=== PATIENT | female | born 1955 | race Caucasian/White ===

== ENCOUNTER 2016-06-28 08:00 | Outpatient (CLI) | payer MEDICAID | END 2016-06-28 08:01 | disposition home or self-care (01) | DX: E11.8 Type 2 diabetes mellitus with unspecified complications (principal); I10 Essential (primary) hypertension; E78.5 Hyperlipidemia, unspecified ==

== ENCOUNTER 2016-12-10 16:30 | Outpatient (CLI) | payer MEDICAID | END 2016-12-10 16:31 | disposition home or self-care (01) | LOC: LAB.R 16:30 | PROVIDERS: ATTEND Podiatrist | DX: E11.622 Type 2 diabetes mellitus with other skin ulcer (principal) | CPT/HCPCS: 87070; 87077; 87205 ==

== ENCOUNTER 2017-01-20 10:00 | Outpatient (CLI) | payer MEDICAID | END 2017-01-20 10:01 | disposition home or self-care (01) | LOC: LAB.R 10:00 | PROVIDERS: ATTEND Podiatrist | DX: E11.622 Type 2 diabetes mellitus with other skin ulcer (principal) | CPT/HCPCS: 87070; 87077; 87205 ==

== ENCOUNTER 2017-02-15 08:00 | Outpatient (CLI) | payer MEDICAID | END 2017-02-15 08:01 | disposition home or self-care (01) | LOC: LAB.R 08:00 | PROVIDERS: ATTEND Podiatrist | DX: E11.622 Type 2 diabetes mellitus with other skin ulcer (principal) | CPT/HCPCS: 87070; 87205 ==

== ENCOUNTER 2017-03-28 08:00 | Outpatient (CLI) | payer MEDICAID | END 2017-03-28 08:01 | disposition home or self-care (01) | LOC: LAB.R 08:00 | PROVIDERS: ATTEND Podiatrist | DX: E11.622 Type 2 diabetes mellitus with other skin ulcer (principal) | CPT/HCPCS: 87070; 87205 ==

== ENCOUNTER 2017-07-22 07:10 | Outpatient (CLI) | payer MEDICAID ==
[2017-07-22 11:24] LABS: ALBUMIN 4.1 g/dL (3.2-5.5); ALBUMIN/GLOBULIN RATIO 1.4 (1.0-2.2); ALKALINE PHOSPHATASE 61 IU/L (42-121); ALT ALANINE AMINOTRANSFERASE 28 IU/L (10-60); AST ASPARTATE AMINOTRANSFERASE 28 IU/L (10-42); BILIRUBIN,TOTAL 0.4 mg/dL (0.2-1.0); BUN - BLOOD UREA NITROGEN 10 mg/dL (6-20); CALCIUM 9.5 mg/dL (8.5-10.3); CARBON DIOXIDE - CO2 28 mmol/L (21-32); CHLORIDE 102 mmol/L (101-111); CHOL/HDL RATIO 5.3 (<4.4); CHOLESTEROL 159 mg/dL; CREATININE 0.6 mg/dL (0.4-1.0); GFR - MDRD 102 (>89); GLUCOSE 97 mg/dL (70-100); HDL CHOLESTEROL 30 mg/dL; SODIUM 139 mmol/L (135-145)
[2017-07-22 11:42] LABS: LDL CHOLESTEROL,DIRECT 69 mg/dL; LDLD/HDL RATIO 2.3 (<4.4)
[2017-07-22 12:06] LABS: HB2 TOTAL 16.5 g/dL; HEMOGLOBIN A1C 1.16 g/dL; HEMOGLOBIN A1C % 8.6 % (4.6-6.2)
== END 2017-07-22 07:11 | disposition home or self-care (01) ==
LOC: LAB.F 07:10
PROVIDERS: ATTEND Nurse Practitioner Family
DX: I10 Essential (primary) hypertension (principal); E11.9 Type 2 diabetes mellitus without complications; E78.5 Hyperlipidemia, unspecified
CPT/HCPCS: 36415; 80053; 80061; 82043; 83036; 83721

== ENCOUNTER 2017-11-10 07:16 | Outpatient (CLI) | payer MEDICAID ==
[2017-11-10 12:03] LABS: CHOL/HDL RATIO 4.1 (<4.4); CHOLESTEROL 114 mg/dL; HDL CHOLESTEROL 28 mg/dL; LDL CHOLESTEROL,CALCULATED 38 mg/dL; LDL/HDL RATIO 1.4 (<4.4); VLDL CHOLESTEROL 48 mg/dL
== END 2017-11-10 07:17 | disposition home or self-care (01) ==
LOC: LAB.F 07:16
PROVIDERS: ATTEND Nurse Practitioner Family
DX: E78.5 Hyperlipidemia, unspecified (principal)
CPT/HCPCS: 36415; 80061; 83721

== ENCOUNTER 2017-12-08 09:22 | Outpatient (CLI) | payer MEDICAID ==
[2017-12-08 18:03] LABS: HB2 TOTAL 17.7 g/dL; HEMOGLOBIN A1C 1.1 g/dL; HEMOGLOBIN A1C % 7.8 % (4.6-6.2)
== END 2017-12-08 09:23 | disposition home or self-care (01) ==
LOC: LAB.F 09:22
PROVIDERS: ATTEND Nurse Practitioner Family
DX: E11.65 Type 2 diabetes mellitus with hyperglycemia (principal)
CPT/HCPCS: 36415; 83036

== ENCOUNTER 2018-03-29 09:11 | Outpatient (CLI) | payer MEDICAID ==
[2018-03-29 18:31] LABS: HB2 TOTAL 16.8 g/dL; HEMOGLOBIN A1C 0.9 g/dL; HEMOGLOBIN A1C % 7.1 % (4.6-6.2)
[2018-03-29 18:39] LABS: BILIRUBIN,DIRECT 0.1 mg/dL (0.1-0.5); BILIRUBIN,TOTAL 0.9 mg/dL (0.2-1.0); TOTAL PROTEIN 6.7 g/dL (6.7-8.2)
== END 2018-03-29 09:12 | disposition home or self-care (01) ==
LOC: LAB.F 09:11
PROVIDERS: ATTEND Nurse Practitioner Family
DX: E11.65 Type 2 diabetes mellitus with hyperglycemia (principal); E78.1 Pure hyperglyceridemia; E78.5 Hyperlipidemia, unspecified
CPT/HCPCS: 36415; 80076; 83036; 84478

== ENCOUNTER 2018-05-15 08:19 | Outpatient (CLI) | payer MEDICAID ==
--- NOTE | 2018-05-15 12:04 | XRAY Report ---
Reason: LEG NUMBNESS Procedure Date: 05/15/2018 Accession Number: [id number] / [id number] Procedure: XR - Lumbar Spine 2 View CPT Code: FULL RESULT: EXAM: LUMBOSACRAL SPINE RADIOGRAPHY EXAM DATE: 05/15/2018 08:51 AM. CLINICAL HISTORY: LEG NUMBNESS. COMPARISONS: None. TECHNIQUE: 3 views. FINDINGS: Alignment: No spondylolisthesis or scoliosis. Bones: Five yov-ndw-bpnhlsg lumbar vertebral bodies are present. There is minimal wedging of the L3 vertebral body without a comparison. Disks: There is moderate narrowing of the L4-L5 disk space. There is mild narrowing of the L5-S1 disk space. There are small to moderate anterior osteophytes. Facets: No degenerative changes. Sacroiliac Joints: Unremarkable. Soft Tissues: The visualized bowel gas pattern is normal. IMPRESSION: 1. Moderate lumbar spondylosis 2. Mild anterior wedging of L3 is seen without a comparison. Correlate clinically. RADIA
== END 2018-05-15 08:20 | disposition home or self-care (01) ==
LOC: DI 08:19
PROVIDERS: ATTEND Nurse Practitioner Family
DX: M47.9 Spondylosis, unspecified (principal); M48.56XA Collapsed vertebra, not elsewhere classified, lumbar region, initial encounter for fracture
CPT/HCPCS: 72100

== ENCOUNTER 2018-12-20 07:06 | Outpatient (CLI) | payer MEDICAID ==
[2018-12-20 11:01] LABS: HB2 TOTAL 16.6 g/dL; HEMOGLOBIN A1C 1.12 g/dL; HEMOGLOBIN A1C % 8.3 % (4.6-6.2)
== END 2018-12-20 07:07 | disposition home or self-care (01) ==
LOC: LAB.S 07:06
PROVIDERS: ATTEND Registered Nurse
DX: E11.9 Type 2 diabetes mellitus without complications (principal)
CPT/HCPCS: 36415; 83036

== ENCOUNTER 2019-01-19 11:41 | Outpatient (CLI) | payer MEDICAID | END 2019-01-19 11:42 | disposition home or self-care (01) | LOC: LAB.S 11:41 | PROVIDERS: ATTEND Registered Nurse | DX: Z53.9 Procedure and treatment not carried out, unspecified reason (principal) ==

== ENCOUNTER 2019-01-22 08:38 | Outpatient (CLI) | payer MEDICAID ==
[2019-01-22 17:10] LABS: BASOPHILS % (AUTO) 0.7 %; EOSINOPHILS # (AUTO) 0.2 10^3/uL (0.0-0.7); EOSINOPHILS % (AUTO) 3.5 %; LYMPHOCYTES # (AUTO) 1.4 10^3/uL (1.5-3.5); LYMPHOCYTES % (AUTO) 24.5 %; MEAN CORPUSCULAR HEMOGLOBIN 33.2 pg (27.0-31.0); MEAN CORPUSCULAR HGB CONC 33.1 g/dL (32.0-36.0); MEAN CORPUSCULAR VOLUME 100.2 fL (81.0-99.0); MEAN PLATELET VOLUME 9.7 fL (7.9-10.8); MONOCYTES # (AUTO) 0.5 10^3/uL (0.0-1.0); MONOCYTES % (AUTO) 9.4 %; NEUTROPHILS # (AUTO) 3.5 10^3/uL (1.5-6.6); NEUTROPHILS % (AUTO) 61.4 %; PLT - PLATELET COUNT 256 10^3/uL (130-450); RED BLOOD COUNT 4.82 10^6/uL (4.20-5.40); RED CELL DISTRIBUTION WIDTH 13.4 % (12.0-15.0); WHITE BLOOD COUNT 5.8 x10^3/uL (4.8-10.8)
[2019-01-22 17:23] LABS: HB2 TOTAL 16.5 g/dL; HEMOGLOBIN A1C 0.94 g/dL; HEMOGLOBIN A1C % 7.4 % (4.6-6.2)
[2019-01-22 17:37] LABS: CREATININE,URINE 163.4 mg/dL; MICROALBUM/CREATININE RATIO,UR 130.4 ug/mg (<30.0); MICROALBUMIN,URINE 21.3 mg/dL (0-300.0)
[2019-01-22 17:39] LABS: ALBUMIN 3.7 g/dL (3.2-5.5); ALBUMIN/GLOBULIN RATIO 1.3 (1.0-2.2); ALKALINE PHOSPHATASE 68 IU/L (42-121); ALT ALANINE AMINOTRANSFERASE 19 IU/L (10-60); AST ASPARTATE AMINOTRANSFERASE 18 IU/L (10-42); BILIRUBIN,TOTAL 0.6 mg/dL (0.2-1.0); BUN - BLOOD UREA NITROGEN 9 mg/dL (6-20); CALCIUM 9.4 mg/dL (8.5-10.3); CARBON DIOXIDE - CO2 33 mmol/L (21-32); CHLORIDE 104 mmol/L (101-111); CHOL/HDL RATIO 5.6 (<4.4); CHOLESTEROL 174 mg/dL; CREATININE 0.6 mg/dL (0.4-1.0); GFR - MDRD 101 (>89); GLUCOSE 162 mg/dL (70-100); HDL CHOLESTEROL 31 mg/dL; LDL CHOLESTEROL,CALCULATED 91 mg/dL; LDL/HDL RATIO 2.9 (<4.4); SODIUM 141 mmol/L (135-145); TOTAL PROTEIN 6.6 g/dL (6.7-8.2); VLDL CHOLESTEROL 52 mg/dL
== END 2019-01-22 08:39 | disposition home or self-care (01) ==
LOC: LAB.S 08:38
PROVIDERS: ATTEND Registered Nurse
DX: E11.65 Type 2 diabetes mellitus with hyperglycemia (principal); I10 Essential (primary) hypertension; E78.5 Hyperlipidemia, unspecified; E78.1 Pure hyperglyceridemia; E66.01 Morbid (severe) obesity due to excess calories
CPT/HCPCS: 36415; 80050; 80061; 82043; 82570; 83036; 83721

== ENCOUNTER 2020-04-14 08:26 | Outpatient (CLI) | payer OTHER ==
[2020-04-14 17:00] LABS: BASOPHILS # (AUTO) 0.1 10^3/uL (0.0-0.1); BASOPHILS % (AUTO) 1.2 %; EOSINOPHILS # (AUTO) 0.2 10^3/uL (0.0-0.7); EOSINOPHILS % (AUTO) 3.7 %; HGB - HEMOGLOBIN 16.2 g/dL (12.0-16.0); LYMPHOCYTES # (AUTO) 1.4 10^3/uL (1.5-3.5); LYMPHOCYTES % (AUTO) 27.5 %; MEAN CORPUSCULAR HEMOGLOBIN 33.7 pg (27.0-31.0); MEAN CORPUSCULAR HGB CONC 33.1 g/dL (32.0-36.0); MEAN CORPUSCULAR VOLUME 101.7 fL (81.0-99.0); MEAN PLATELET VOLUME 9.7 fL (7.9-10.8); MONOCYTES # (AUTO) 0.4 10^3/uL (0.0-1.0); MONOCYTES % (AUTO) 8.4 %; NEUTROPHILS # (AUTO) 2.9 10^3/uL (1.5-6.6); NEUTROPHILS % (AUTO) 58.8 %; PLT - PLATELET COUNT 298 10^3/uL (130-450); RED BLOOD COUNT 4.81 10^6/uL (4.20-5.40); WHITE BLOOD COUNT 4.9 x10^3/uL (4.8-10.8)
[2020-04-14 17:02] LABS: ALBUMIN 3.8 g/dL (3.2-5.5); ALBUMIN/GLOBULIN RATIO 1.4 (1.0-2.2); ALKALINE PHOSPHATASE 60 IU/L (42-121); ALT ALANINE AMINOTRANSFERASE 18 IU/L (10-60); AST ASPARTATE AMINOTRANSFERASE 16 IU/L (10-42); BILIRUBIN,TOTAL 1.1 mg/dL (0.2-1.0); BUN - BLOOD UREA NITROGEN 14 mg/dL (6-20); CALCIUM 9.5 mg/dL (8.5-10.3); CARBON DIOXIDE - CO2 30 mmol/L (21-32); CHLORIDE 100 mmol/L (101-111); CHOL/HDL RATIO 6.4 (<4.4); CHOLESTEROL 192 mg/dL; CREATININE 0.9 mg/dL (0.4-1.0); GLUCOSE 203 mg/dL (70-100); HDL CHOLESTEROL 30 mg/dL; LDL CHOLESTEROL,CALCULATED 101 mg/dL; LDL/HDL RATIO 3.4 (<4.4); SODIUM 139 mmol/L (135-145); TOTAL PROTEIN 6.6 g/dL (6.7-8.2); VLDL CHOLESTEROL 61 mg/dL
== END 2020-04-14 08:27 | disposition home or self-care (01) ==
LOC: LAB.S 08:26
PROVIDERS: ATTEND Family Medicine
DX: E11.621 Type 2 diabetes mellitus with foot ulcer (principal); E11.65 Type 2 diabetes mellitus with hyperglycemia; E03.9 Hypothyroidism, unspecified; E78.5 Hyperlipidemia, unspecified; I10 Essential (primary) hypertension; K21.9 Gastro-esophageal reflux disease without esophagitis
CPT/HCPCS: 36415; 80053; 80061; 83036; 83721; 84443; 85025

== ENCOUNTER 2020-08-05 15:59 | Outpatient (CLI) | payer OTHER ==
[2020-08-05 16:16] LABS: BASOPHILS # (AUTO) 0.1 10^3/uL (0.0-0.1); BASOPHILS % (AUTO) 0.8 %; EOSINOPHILS # (AUTO) 0.1 10^3/uL (0.0-0.7); EOSINOPHILS % (AUTO) 1.4 %; HCT - HEMATOCRIT 45.6 % (37.0-47.0); HGB - HEMOGLOBIN 16.2 g/dL (12.0-16.0); LYMPHOCYTES # (AUTO) 1.6 10^3/uL (1.5-3.5); LYMPHOCYTES % (AUTO) 18.4 %; MEAN CORPUSCULAR HEMOGLOBIN 34.9 pg (27.0-31.0); MEAN CORPUSCULAR HGB CONC 35.5 g/dL (32.0-36.0); MEAN CORPUSCULAR VOLUME 98.3 fL (81.0-99.0); MEAN PLATELET VOLUME 8.7 fL (7.9-10.8); MONOCYTES # (AUTO) 0.7 10^3/uL (0.0-1.0); MONOCYTES % (AUTO) 7.7 %; NEUTROPHILS # (AUTO) 6.3 10^3/uL (1.5-6.6); NEUTROPHILS % (AUTO) 71.2 %; PLT - PLATELET COUNT 304 10^3/uL (130-450); RED BLOOD COUNT 4.64 10^6/uL (4.20-5.40); RED CELL DISTRIBUTION WIDTH 12.6 % (12.0-15.0); WHITE BLOOD COUNT 8.8 x10^3/uL (4.8-10.8)
[2020-08-05 16:26] LABS: ALBUMIN 4.1 g/dL (3.2-5.5); ALBUMIN/GLOBULIN RATIO 1.4 (1.0-2.2); BILIRUBIN,TOTAL 0.9 mg/dL (0.2-1.0); CALCIUM 9.9 mg/dL (8.5-10.3); CREATININE 0.8 mg/dL (0.4-1.0); POTASSIUM 3.3 mmol/L (3.5-5.0)
[2020-08-05 19:08] LABS: ESTIMATED AVERAGE GLUCOSE 180 mg/dL (70-100); HEMOGLOBIN A1c% 7.9 % (4.27-6.07)
== END 2020-08-05 16:00 | disposition home or self-care (01) ==
LOC: LAB 15:59
PROVIDERS: ATTEND Internal Medicine Gastroenterology
DX: E11.621 Type 2 diabetes mellitus with foot ulcer (principal)
CPT/HCPCS: 36415; 80053; 83036; 85025

== ENCOUNTER 2020-09-30 15:32 | Outpatient (CLI) | payer OTHER ==
--- NOTE | 2020-09-30 16:45 | XRAY Report ---
PROCEDURE: Foot 3 View RT INDICATIONS: Type 2 diabetes mellitus with foot ulcer TECHNIQUE: 3 views of the foot were acquired. COMPARISON: None FINDINGS: Bones: No fractures or dislocations. Diffuse IP degenerative changes are present most severe in the first digit. Periarticular osteophytes are present. Ill-defined area of lucency is noted at the base of the distal first phalanx and to a lesser degree the distal aspect of the proximal first phalanx. No priors are available for comparison. Partially visualized distal fibular as well as tibial fusion is noted. Soft tissues: No tibiotalar joint effusion. Achilles tendon appears normal. Soft tissue edema is p resent surrounding the distal first digit. IMPRESSION: Lucencies identified within the proximal and distal phalanx of the first digit. Given adjacent soft t issue edema particularly adjacent to the distal phalanx, developing focus of infection such as osteom yelitis cannot be excluded. Reviewed by: Aleta Verde MD on 09/30/2020 4:44 PM PDT Approved by: Aleta Verde MD on 09/30/2020 4:44 PM PDT Station ID: [id number]
== END 2020-09-30 15:33 | disposition home or self-care (01) ==
LOC: DI 15:32
PROVIDERS: ATTEND Nurse Practitioner
DX: E11.621 Type 2 diabetes mellitus with foot ulcer (principal)

== ENCOUNTER 2020-10-23 12:52 | Outpatient (CLI) | payer OTHER ==
[2020-10-23 13:22] LABS: CREATININE 0.7 mg/dL (0.4-1.0)
[2020-10-23] MEDS ORDERED: GADOBUTROL 15 MMOL/15 ML VIAL ONE (13:55)
[2020-10-23] MEDS ORDERED: GADOBUTROL 15 MMOL/15 ML VIAL IVP ONE (16:17)
--- NOTE | 2020-10-23 16:45 | MRI Report ---
PROCEDURE: Foot RT W/WO INDICATIONS: FOOT ULCER CONTRAST: IV CONTRAST: Gadavist ml: 13 TECHNIQUE: Noncontrast sagittal T1 spin echo and T2 fast spin echo with fat saturation, long-axis T1 spin echo a nd T2 fast spin echo with fat saturation; short-axis T1 spin echo, proton density fast spin echo, and T2 fast spin echo with fat saturation through the forefoot. Post-contrast short axis, long axis, an d sagittal T1 spin echo with fat saturation through the forefoot. COMPARISON: Foot x-ray 09/30/2020. FINDINGS: Image quality: Evaluation limited by motion artifact and inhomogeneous fat saturation. Bones and joints: There is abnormal bone marrow edema and enhancement within the first distal phalanx with an associated plantar cortical erosion. Findings are consistent with osteomyelitis. No definite cortical erosion, abnormal edema or enhancement within the first proximal phalanx. There is mild deg eneration at the first metatarsophalangeal joint. There is also mild to moderate degeneration of the interphalangeal joints. The sesamoid bones demonstrate normal position and signal. No joint effusions . Soft tissues: There is a soft tissue ulcer along the medial plantar aspect of the great toe at the le viktoriya of the interphalangeal joint. There is associated soft tissue edema and enhancement within the gr eat toe extending to the first proximal and distal phalanges. No discrete abscess collection identifi ed. The visualized plantar foot muscles demonstrate moderate fatty atrophy without associated abnormal en hancement. Visualized flexor and extensor tendons appear intact, without tenosynovitis. The distal i nsertions of the peroneus brevis and longus tendons appear intact. The principal Lisfranc ligament a ppears intact. A small amount of intermetatarsal bursal fluid is present within the first and third m etatarsal interspaces. No soft tissue ganglion cysts IMPRESSION: 1. Abnormal marrow edema and enhancement with a plantar cortical erosion in the first distal phalanx consistent with osteomyelitis. 2. Soft tissue ulcer within the plantar medial aspect of the great toe with subjacent soft tissue zoila ma and enhancement consistent with cellulitis. No discrete abscess identified. 3. Mild enhancement demonstrated along the first proximal phalanx without discrete cortical erosions or abnormal marrow enhancement to suggest definite osteomyelitis, but developing periosteal infection cannot be excluded. Reviewed by: Kevin Sneed MD on 10/23/2020 4:43 PM PDT Approved by: Kevin Sneed MD on 10/23/2020 4:43 PM PDT Station ID: [id number]
== END 2020-10-23 12:53 | disposition home or self-care (01) ==
LOC: LAB 12:52 → DI 12:53
PROVIDERS: ATTEND Nurse Practitioner
DX: R93.6 Abnormal findings on diagnostic imaging of limbs (principal); R93.89 Abnormal findings on diagnostic imaging of other specified body structures; L97.519 Non-pressure chronic ulcer of other part of right foot with unspecified severity; E11.621 Type 2 diabetes mellitus with foot ulcer
CPT/HCPCS: 36415; 73720; 82565; A9585

== ENCOUNTER 2020-11-19 06:06 | Day surgery (SDC) | payer OTHER ==
[2020-11-19] MEDS ORDERED: LACTATED RINGERS 1,000 ML IV ONE ×2 (06:44→08:09)
[2020-11-19] MEDS ORDERED: MIDAZOLAM 2 MG/2 ML VIAL ONE (07:07)
[2020-11-19] MEDS ORDERED: PROPOFOL 200 MG/20 ML VIAL IVP ONE (07:09)
[2020-11-19] MEDS ORDERED: LIDOCAINE-MPF 2% 5 ML VIAL ONE (07:09)
[2020-11-19] MEDS ORDERED: SODIUM CHLORIDE 0.9% 10 ML VIAL IVP ONE (07:10)
[2020-11-19] MEDS ORDERED: KETAMINE 500 MG/10 ML VIAL ONE (07:10)
--- NOTE | 2020-11-19 07:11 | ANESTHESIA ---
Pre-Anesthesia VS, & Labs - Diagnosis R heel contracture - Procedure R heel cord lengthening Vital Signs: Temp Pulse Resp BP Pulse Ox 36.3 C L 58 L 19 211/75 H 97 11/19/20 06:28 11/19/20 06:28 11/19/20 06:28 11/19/20 06:28 11/19/20 06:28 Height: 5 ft 9 in Weight (kg): 131.1 kg Body Mass Index: 42.7 BMI Classification: Morbidly Obese - NPO >8 hours - Is Patient ?: No - Lab Results Current Lab Results: Laboratory Tests 11/19/20 06:33: POC Whole Bld Glucose 227 H Lab results reviewed: Yes Home Medications and Allergies Enalapril Maleate 20 mg PO DAILY 01/29/13 Metformin HCl [Glucophage] 1,000 mg PO BID 01/29/13 Omeprazole [PriLOSEC] 20 mg PO DAILY 01/29/13 PARoxetine [Paxil] 20 mg PO DAILY 01/29/13 atenoloL [Tenormin] 50 mg PO DAILY 01/29/13 hydroCHLOROthiazide [Hydrodiuril] 25 mg PO DAILY 01/29/13 Fenofibrate 54 mg PO DAILY 02/27/18 Insulin NPH Hum/Reg Insulin Hm [Humulin 70-30 Vial] 70 - 80 unit SQ BID 01/22/20 Levothyroxine [Synthroid] 100 mcg PO DAILY 01/22/20 Ascorbic Acid [Vitamin C] 2 cap PO DAILY 10/09/20 Iron,Carbonyl/Ascorbic Acid [Fe C Tablet] 650 mg PO DAILY 10/09/20 Cholecalciferol (Vitamin D3) [Vitamin D3] 1 cap ORAL DAILY 10/14/20 Allergies/Adverse Reactions: Allergies Allergy/AdvReac Type Severity Reaction Status Date / Time amoxicillin Allergy Intermediate Rash Verified 05/13/20 13:44 acetaminophen [From Percocet] AdvReac Intermediate Nausea Verified 05/13/20 13:44 oxycodone HCl * AdvReac Intermediate Nausea Verified 05/13/20 13:44 [From Percocet] Anes History & Medical History - Anesthetic History Anesthesia Complications: reports: No previous complications Family history of Anesthesia Complications: Denies Family history of Malignant Hyperthermia: Denies - Medical History Cardiovascular: reports: Hypertension, High cholesterol Gastrointestinal: reports: GERD Urinary: reports: None Neuro: reports: Peripheral neuropathy Musculoskeletal: reports: Chronic back pain Endocrine/Autoimmune: reports: Type 2 diabetes, HyPOthyroidism Skin: reports: Other Smoking Status: Former smoker - Surgical History General: reports: Cholecystectomy Orthopedic: reports: Other Exam General: Alert, Oriented x3, Cooperative Dental: WNL Mouth Openin Fingerbreadth Neck Mobility: Normal Mallampati classification: II Respiratory: Normal breath sounds, No respiratory distress, No accessory muscle use Cardiovascular: Regular rate (michael, hypertensive) Neurological: Normal speech Mental/Cognitive Status: Alert/Oriented X3, Normal for patient Cognitive Status: Within normal limits Plan Anesthesia Type: MAC Consent for Procedure(s) Verified and Reviewed: Yes Code Status: Attempt Resuscitation ASA classification: 3-Severe systemic disease Is this case an emergency?: No
[2020-11-19] MEDS ORDERED: KETOROLAC 15 MG/ML VIAL IVP STA (07:13)
[2020-11-19] MEDS ORDERED: HYDROcod/ACETAM 10 MG/325 MG TABLET PO PRN (07:13)
[2020-11-19] MEDS ORDERED: hydrALAZINE INJ 20 MG/ML VIAL ONE (07:27)
[2020-11-19] MEDS ORDERED: BUPIVACAINE 0.5% PF 30 ML VIAL ONE (07:28)
[2020-11-19] MEDS ORDERED: BUPIVACAINE 0.5% PF 30 ML VIAL INFIL ONE ×2 (07:45)
--- NOTE | 2020-11-19 07:55 | OPERATIVE REPORT ---
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 Procedure Performed: Percutaneous triple hemisection tendo Achilles lengthening right ankle Post Op Diagnosis: Same as preoperative diagnosis - Procedure Note Primary Surgeon: Harpal Rees MD Secondary Surgeon: Shaquille VAZQUEZ Anesthesia Provider: Stephan Paige CRNA Anesthesia Technique: Moderate sedation Estimated Blood Loss (mL): 5 Indications: This is a 64-year-old woman with diabetes mellitus, insulin-dependent, neuropathy, chronic ulceration to base of right great toe for approximately 2 years, latent osteomyelitis proximal phalanx right great toe, previous open reduction internal fixation right ankle for ankle fracture leading to posttraumatic arthritis and ankle stiffness. She has a complex foot and ankle deformity leading to abnormal biomechanics to the base of right great toe, callosity, ulceration and previous infection. The goal is to try to improve her foot mechanics by getting her into a more plantigrade position, offloading the ulcer and hopefully allow the ulcer to heal. She seems to have good vascularity to the ulcer site, vascular appearing tissue base to ulcer which measures about 1 cm over the plantar medial aspect of the base of right great toe. The percutaneous tendo Achilles is the least invasive procedure to try to obtain plantigrade foot. Obviously, the percutaneous tendo Achilles lengthening does not address the intra-articular component of her contracture which is secondary to posttraumatic arthritis of the right ankle joint.There is no active site of infection to the ulcer base at the present time, Right great toe Findings: The patient has slightly less than neutral dorsiflexion, plantar flexion contracture right ankle. The tightness was present both with knee flexion and knee extension to the right ankle.The ulcer of the right great toe had no exposed, tendon or bone, good vascular appearing tissue base, 1 cm diameter over the base of right great toe plantar surface. There is no sign of active infection to ulcer. Complications: None - Other Other Information/Narrative: Patient was brought to the operating room placed in supine position. After satisfactory sedation was achieved, right lower extremity was prepped and draped in sterile manner in usual fashion. A timeout procedure was performed by the entire operating team and all were in agreement. A 3 incision percutaneous hemisection tendo Achilles lengthening was performed. Each incision was about a little over a centimeter apart. There was audible lengthening with tendo Achilles hemisection and improvement in her dorsiflexion to about 5 to 10 degrees. This was a considerable improvement. The incisions were dressed with sterile dressing, Xeroform, sterile gauze and a well-padded fiberglass short leg splint to hold the ankle Joint in neutral position. She tolerated procedure well.A physician surgical supply assistant was used to provide positioning, and splint application.
[2020-11-19 08:38] VITALS: BP 178/83
--- NOTE | 2020-11-19 10:36 | ANESTHESIA POST OP EVALUATION ---
Anesthesia Post Eval - Post Anesthesia Eval Vitals: Last Vital Signs Temp 36.8 C 11/19/20 08:09 Pulse 62 11/19/20 08:37 Resp 15 11/19/20 08:37 BP 178/83 H 11/19/20 08:37 Pulse Ox 96 11/19/20 08:37 CV Function Including HR & BP: Stable Pain Control: Satisfactory Nausea & Vomiting: Negative Mental Status: Baseline Respiratory Status: Airway Patent Hydration Status: Satisfactory Anesthesia Complications: None
== END 2020-11-19 06:07 | disposition home or self-care (01) ==
LOC: SDS 06:06
PROVIDERS: ATTEND Orthopaedic Surgery
DX: M24.571 Contracture, right ankle (principal); E11.621 Type 2 diabetes mellitus with foot ulcer; E11.42 Type 2 diabetes mellitus with diabetic polyneuropathy; E11.69 Type 2 diabetes mellitus with other specified complication; L97.519 Non-pressure chronic ulcer of other part of right foot with unspecified severity; M86.8X7 Other osteomyelitis, ankle and foot; M19.171 Post-traumatic osteoarthritis, right ankle and foot; S82.891S Other fracture of right lower leg, sequela; Z79.4 Long term (current) use of insulin; E66.01 Morbid (severe) obesity due to excess calories; Z68.41 Body mass index [BMI] 40.0-44.9, adult
CPT/HCPCS: 27685; J7120

== ENCOUNTER 2021-07-28 07:16 | Outpatient (CLI) | payer OTHER ==
[2021-07-28 15:00] LABS: BASOPHILS # (AUTO) 0.1 10^3/uL (0.0-0.1); BASOPHILS % (AUTO) 1.1 %; EOSINOPHILS # (AUTO) 0.3 10^3/uL (0.0-0.7); EOSINOPHILS % (AUTO) 4.3 %; HCT - HEMATOCRIT 49.4 % (37.0-47.0); LYMPHOCYTES % (AUTO) 30.8 %; MEAN CORPUSCULAR HEMOGLOBIN 32.9 pg (27.0-31.0); MEAN CORPUSCULAR HGB CONC 34.4 g/dL (32.0-36.0); MEAN CORPUSCULAR VOLUME 95.6 fL (81.0-99.0); MEAN PLATELET VOLUME 9.9 fL (7.9-10.8); MONOCYTES # (AUTO) 0.5 10^3/uL (0.0-1.0); MONOCYTES % (AUTO) 7.1 %; NEUTROPHILS # (AUTO) 3.6 10^3/uL (1.5-6.6); NEUTROPHILS % (AUTO) 56.1 %; PLT - PLATELET COUNT 278 10^3/uL (130-450); RED BLOOD COUNT 5.17 10^6/uL (4.20-5.40); RED CELL DISTRIBUTION WIDTH 12.2 % (12.0-15.0); WHITE BLOOD COUNT 6.5 x10^3/uL (4.8-10.8)
[2021-07-28 15:18] LABS: ALBUMIN 3.9 g/dL (3.2-5.5); ALBUMIN/GLOBULIN RATIO 1.3 (1.0-2.2); ALKALINE PHOSPHATASE 57 IU/L (42-121); ALT ALANINE AMINOTRANSFERASE 23 IU/L (10-60); AST ASPARTATE AMINOTRANSFERASE 21 IU/L (10-42); BILIRUBIN,TOTAL 0.7 mg/dL (0.2-1.0); BUN - BLOOD UREA NITROGEN 8 mg/dL (6-20); CALCIUM 9.4 mg/dL (8.5-10.3); CARBON DIOXIDE - CO2 31 mmol/L (21-32); CHLORIDE 96 mmol/L (101-111); CHOL/HDL RATIO 7.9 (<4.4); CHOLESTEROL 245 mg/dL; CREATININE 0.7 mg/dL (0.4-1.0); GFR - MDRD 84 (>89); GLUCOSE 104 mg/dL (70-100); HDL CHOLESTEROL 31 mg/dL; POTASSIUM 3.1 mmol/L (3.5-5.0); SODIUM 137 mmol/L (135-145); TRIGLYCERIDES 536 mg/dL
[2021-07-28 15:26] LABS: THYROID STIMULATING HORMONE 5.23 uIU/mL (0.34-5.60)
[2021-07-28 15:58] LABS: LDL CHOLESTEROL,DIRECT 134 mg/dL; LDLD/HDL RATIO 4.3 (<4.4)
[2021-07-28 16:05] LABS: CREATININE,URINE 101.5 mg/dL; MICROALBUM/CREATININE RATIO,UR 1745.8 ug/mg (<30.0); MICROALBUMIN,URINE 177.2 mg/dL (0-300.0)
[2021-07-28 20:23] LABS: ESTIMATED AVERAGE GLUCOSE 203 mg/dL (70-100); HEMOGLOBIN A1c% 8.7 % (4.27-6.07)
== END 2021-07-28 07:17 | disposition home or self-care (01) ==
LOC: LAB.S 07:16
PROVIDERS: ATTEND Registered Nurse
DX: E11.8 Type 2 diabetes mellitus with unspecified complications (principal); Z79.4 Long term (current) use of insulin; I10 Essential (primary) hypertension; E03.9 Hypothyroidism, unspecified; E78.1 Pure hyperglyceridemia
CPT/HCPCS: 36415; 80053; 80061; 82043; 82570; 83036; 83721; 84443; 85025

== ENCOUNTER 2021-09-11 14:35 | Outpatient (CLI) | payer OTHER ==
--- NOTE | 2021-09-11 20:59 | Ultrasound Report ---
PROCEDURE: Pelvic w/Transvaginal INDICATIONS: POST MENOPAUSAL BLEEDING TECHNIQUE: Real-time scanning was performed of the pelvic organs, with image documentation. Additional endovagi nal scanning was necessary due to incomplete visualization of the adnexal and endometrial structures by transabdominal scanning. COMPARISON: None. FINDINGS: Limited scanning through the kidneys shows no hydronephrosis. No pathologic free abdominal or pelvic fluid. Uterus: Uterus is enlarged measuring 14.7 x 7.1 x 7.3 cm. The endometrium measures 13.4 mm in combi julia thickness. Uterus is overall heterogeneous. The endometrium complex is also heterogeneous. There is a mid posterior subserosal focus of heterogeneous echogenicity measuring 42 x 41 x 46 m. A m id posterior intramural focus of heterogeneous echogenicity is present measuring 24 x 20 x 28 mm. The re is a right anterior intrarenal focus of heterogeneous echogenicity with calcifications measuring 4 2 x 38 x 39 mm. Ovaries: Ovaries are not visualized. Other: No free pelvic fluid. IMPRESSION: Uterus is enlarged with fibroids. Endometrium is thickened and heterogeneous for a postmenopausal female with bleeding. Endometrial lizy pling is present to exclude malignancy. Reviewed by: Aleta Verde MD on 09/11/2021 8:58 PM PDT Approved by: Aleta Verde MD on 09/11/2021 8:58 PM PDT Station ID: [id number]
== END 2021-09-11 14:36 | disposition home or self-care (01) ==
LOC: DI 14:35
PROVIDERS: ATTEND Registered Nurse
DX: D25.2 Subserosal leiomyoma of uterus (principal); D25.1 Intramural leiomyoma of uterus; R93.89 Abnormal findings on diagnostic imaging of other specified body structures

== ENCOUNTER 2022-09-15 07:09 | Outpatient (CLI) | payer OTHER ==
[2022-09-15 14:27] LABS: BASOPHILS # (AUTO) 0.1 10^3/uL (0.0-0.1); BASOPHILS % (AUTO) 0.6 %; EOSINOPHILS # (AUTO) 0.2 10^3/uL (0.0-0.7); EOSINOPHILS % (AUTO) 1.9 %; HCT - HEMATOCRIT 49.3 % (37.0-47.0); HGB - HEMOGLOBIN 16.3 g/dL (12.0-16.0); LYMPHOCYTES # (AUTO) 2.2 10^3/uL (1.5-3.5); MEAN CORPUSCULAR HGB CONC 33.1 g/dL (32.0-36.0); MEAN CORPUSCULAR VOLUME 96.7 fL (81.0-99.0); MEAN PLATELET VOLUME 9.9 fL (7.9-10.8); MONOCYTES # (AUTO) 0.6 10^3/uL (0.0-1.0); MONOCYTES % (AUTO) 6.3 %; NEUTROPHILS # (AUTO) 5.8 10^3/uL (1.5-6.6); PLT - PLATELET COUNT 313 10^3/uL (130-450); RED CELL DISTRIBUTION WIDTH 11.8 % (12.0-15.0); WHITE BLOOD COUNT 8.8 x10^3/uL (4.8-10.8)
[2022-09-15 14:46] LABS: ALBUMIN 3.9 g/dL (3.2-5.5); ALBUMIN/GLOBULIN RATIO 1.3 (1.0-2.2); ALKALINE PHOSPHATASE 45 IU/L (42-121); ALT ALANINE AMINOTRANSFERASE 27 IU/L (10-60); AST ASPARTATE AMINOTRANSFERASE 22 IU/L (10-42); BILIRUBIN,TOTAL 0.8 mg/dL (0.2-1.0); BUN - BLOOD UREA NITROGEN 13 mg/dL (6-20); CALCIUM 9.6 mg/dL (8.5-10.3); CARBON DIOXIDE - CO2 32 mmol/L (21-32); CHLORIDE 105 mmol/L (101-111); CHOL/HDL RATIO 6.2 (<4.4); CHOLESTEROL 179 mg/dL; CREATININE 0.8 mg/dL (0.4-1.0); GFR - MDRD 72 (>89); GLUCOSE 98 mg/dL (70-100); HDL CHOLESTEROL 29 mg/dL; LDL CHOLESTEROL,CALCULATED 113 mg/dL; LDL/HDL RATIO 3.9 (<4.4); POTASSIUM 3.5 mmol/L (3.5-5.0); SODIUM 144 mmol/L (135-145); TOTAL PROTEIN 6.8 g/dL (6.7-8.2); TRIGLYCERIDES 184 mg/dL; VLDL CHOLESTEROL 37 mg/dL
[2022-09-15 15:00] LABS: THYROID STIMULATING HORMONE 2.26 uIU/mL (0.34-5.60)
[2022-09-15 20:38] LABS: ESTIMATED AVERAGE GLUCOSE 183 mg/dL (70-100)
== END 2022-09-15 07:10 | disposition home or self-care (01) ==
LOC: LAB.S 07:09
PROVIDERS: ATTEND Registered Nurse
DX: I10 Essential (primary) hypertension (principal); E11.8 Type 2 diabetes mellitus with unspecified complications; E78.5 Hyperlipidemia, unspecified; E03.9 Hypothyroidism, unspecified
CPT/HCPCS: 36415; 80053; 80061; 83036; 83721; 84443; 85025

== ENCOUNTER 2024-01-25 07:11 | Outpatient (CLI) | payer MEDICARE ==
[2024-01-25 14:41] LABS: BASOPHILS # (AUTO) 0.1 10^3/uL (0.0-0.1); BASOPHILS % (AUTO) 0.9 %; EOSINOPHILS # (AUTO) 0.3 10^3/uL (0.0-0.7); EOSINOPHILS % (AUTO) 3.5 %; HCT - HEMATOCRIT 44.9 % (37.0-47.0); HGB - HEMOGLOBIN 15.1 g/dL (12.0-16.0); LYMPHOCYTES # (AUTO) 2.1 10^3/uL (1.5-3.5); LYMPHOCYTES % (AUTO) 27.6 %; MEAN CORPUSCULAR HEMOGLOBIN 31.5 pg (27.0-31.0); MEAN CORPUSCULAR HGB CONC 33.6 g/dL (32.0-36.0); MEAN CORPUSCULAR VOLUME 93.5 fL (81.0-99.0); MONOCYTES # (AUTO) 0.5 10^3/uL (0.0-1.0); MONOCYTES % (AUTO) 6.9 %; NEUTROPHILS # (AUTO) 4.7 10^3/uL (1.5-6.6); NEUTROPHILS % (AUTO) 60.6 %; PLT - PLATELET COUNT 296 10^3/uL (130-450); RED CELL DISTRIBUTION WIDTH 12.3 % (12.0-15.0); WHITE BLOOD COUNT 7.7 x10^3/uL (4.8-10.8)
[2024-01-25 15:39] LABS: THYROID STIMULATING HORMONE 3.38 uIU/mL (0.34-5.60)
[2024-01-25 15:40] LABS: CREATININE,URINE 126.4 mg/dL; MICROALBUMIN,URINE 26.8 mg/dL
[2024-01-25 15:53] LABS: ALBUMIN 3.9 g/dL (3.2-5.5); ALBUMIN/GLOBULIN RATIO 1.7 (1.0-2.2); ALKALINE PHOSPHATASE 58 IU/L (42-121); ALT ALANINE AMINOTRANSFERASE 24 IU/L (10-60); AST ASPARTATE AMINOTRANSFERASE 20 IU/L (10-42); BILIRUBIN,TOTAL 0.6 mg/dL (0.2-1.0); BUN - BLOOD UREA NITROGEN 15 mg/dL (6-20); CALCIUM 9.5 mg/dL (8.5-10.3); CARBON DIOXIDE - CO2 33 mmol/L (21-32); CHLORIDE 100 mmol/L (101-111); CHOLESTEROL 168 mg/dL; CREATININE 0.9 mg/dL (0.6-1.3); GFR - MDRD 62 (>89); GLUCOSE 186 mg/dL (74-104); HDL CHOLESTEROL 28 mg/dL; LDL CHOLESTEROL,CALCULATED 64 mg/dL; LDL/HDL RATIO 2.3 (<4.4); POTASSIUM 3.2 mmol/L (3.5-4.5); SODIUM 139 mmol/L (135-145); TOTAL PROTEIN 6.2 g/dL (6.4-8.9); TRIGLYCERIDES 378 mg/dL; VLDL CHOLESTEROL 76 mg/dL
[2024-01-25 20:10] LABS: ESTIMATED AVERAGE GLUCOSE 229 mg/dL (70-100); HEMOGLOBIN A1c% 9.6 % (4.27-6.07)
== END 2024-01-25 07:12 | disposition home or self-care (01) ==
LOC: LAB.S 07:11
PROVIDERS: ATTEND Registered Nurse
DX: E11.42 Type 2 diabetes mellitus with diabetic polyneuropathy (principal); Z13.228 Encounter for screening for other metabolic disorders; Z13.220 Encounter for screening for lipoid disorders; Z13.29 Encounter for screening for other suspected endocrine disorder; Z13.0 Encounter for screening for diseases of the blood and blood-forming organs and certain disorders involving the immune mechanism
CPT/HCPCS: 36415; 80053; 80061; 82043; 82570; 83036; 83721; 84443; 85025